=== PATIENT | male | born 1940 | race African-American/Black ===

== ENCOUNTER 2022-01-26 16:41 | Observation (INO) ==
[2022-01-26 21:56] LABS: Arterial Base Excess iSTAT -2 MMOL/L (-2.5-2.5); Arterial Bicarbonate iSTAT 22.8 MMOL/L (20-26); Arterial O2 Saturation iSTAT 97 % (95-100); Arterial PCO2 iSTAT 40 MM HG (35-48); Arterial PO2 iSTAT 93 MM HG (80-95); Arterial Total CO2 iSTAT 24 MMO/L (23-27); Arterial pH iSTAT 7.362 (7.35-7.45)
[2022-01-26 22:56] LABS: Basophils % 0.3 % (0.0-0.8); Eosinophils # 0.1 10*3/uL (0.0-0.87); Eosinophils % 3.1 % (0.00-10.9); Hematocrit 33.7 VOL% (42.0-52.0); Immature Granulocytes % 0.3 %; Immature Granulocytes Absolute 0.01 #; Lymphocytes # 1.7 10*3/uL (1.4-4.0); Lymphocytes % 44.9 % (21.2-54.2); Mean Corpuscular HGB Conc 32.6 GM/DL (32-36); Mean Corpuscular Volume 98.5 FL (87-102); Mean Platelet Volume 9.9 FL (9.6-12.0); Monocytes # 0.6 10*3/uL (0.11-0.8); Monocytes % 15.5 % (1.7-12.7); Neutrophils % 35.9 % (38.7-73.9); Platelet Count 181 T/CUMM (130-400); Red Blood Count 3.42 MC/CUMM (3.8-5.5); Red Cell Distribution Width 12.7 % (9.3-17.3); White Blood Count 3.8 T/CUMM (4-12)
[2022-01-26 23:12] LABS: Calcium 9.4 MG/DL (8.5-10.1); Osmolality,Calculated 280.5 MOS/KG (273-304)
[2022-01-26] MEDS ORDERED: ENOXAPARIN 100 MG/ML SYRINGE SUBCUT ONE (23:30)
[2022-01-26] MEDS ORDERED: AMIODARONE INJ 150 MG in DEXTROSE 5% 100 ML IV ONE (23:30)
[2022-01-26] MEDS ORDERED: AMIODARONE INJ 450 MG in DEXTROSE 5% 241 ML IV SCH (23:30)
[2022-01-26] MEDS: METOPROLOL TARTRATE 50 MG TABLET PO SCH (23:32)
[2022-01-26] MEDS ORDERED: ACETAMINOPHEN 325 MG TABLET PO PRN (23:56)
[2022-01-26] MEDS ORDERED: guaiFENesin/DM ER 600-30 MG TABLET PO PRN (23:56)
[2022-01-26] MEDS ORDERED: ONDANSETRON 4 MG/2 ML VIAL IV PRN (23:56)
[2022-01-26] MEDS ORDERED: hydrALAZINE 20 MG/1 ML VIAL IV PRN (23:56)
[2022-01-26] MEDS ORDERED: ALBUTEROL/IPRATROPIUM 3 ML NEB RESP TX PRN (23:56)
[2022-01-26] MEDS ORDERED: NICOTINE 21 MG/24 HR PATCH TRANSDERM PRN (23:56)
[2022-01-26] MEDS ORDERED: ZALEPLON 5 MG CAPSULE PO PRN (23:56)
[2022-01-27] MEDS ORDERED: FUROSEMIDE 40 MG/4 ML VIAL IV ONE (00:30)
[2022-01-27 06:06] LABS: Basophils % 0.5 % (0.0-0.8); Eosinophils # 0.1 10*3/uL (0.0-0.87); Eosinophils % 2.6 % (0.00-10.9); Hematocrit 34.1 VOL% (42.0-52.0); Hemoglobin 11.2 GM/DL (14.0-18.0); Immature Granulocytes % 0.5 %; Immature Granulocytes Absolute 0.02 #; Mean Corpuscular HGB Conc 32.8 GM/DL (32-36); Mean Corpuscular Volume 97.7 FL (87-102); Mean Platelet Volume 9.7 FL (9.6-12.0); Monocytes # 0.6 10*3/uL (0.11-0.8); Monocytes % 13.7 % (1.7-12.7); Neutrophils % 35.7 % (38.7-73.9); Platelet Count 188 T/CUMM (130-400); Red Blood Count 3.49 MC/CUMM (3.8-5.5); Red Cell Distribution Width 12.7 % (9.3-17.3); White Blood Count 4.2 T/CUMM (4-12)
[2022-01-27 06:31] LABS: Eosinophils 1 % (0-10); Lymphocytes 35 % (20-55); Platelet Estimate Adequate; Total Cells Counted 100
[2022-01-27 06:40] LABS: Calcium 9.9 MG/DL (8.5-10.1); Osmolality,Calculated 281.4 MOS/KG (273-304); Potassium 4.1 MMOL/L (3.5-5.1); Risk Ratio 2.86; Thyroid Stimulating Hormone 2.78 uIU/ml (0.358-3.74); VLDL Cholesterol 11.4 MG/DL
[2022-01-27] MEDS: FUROSEMIDE 40 MG/4 ML VIAL IV SCH ×2 (10:29→15:56)
[2022-01-27] MEDS: AMIODARONE INJ 450 MG in DEXTROSE 5% 241 ML IV SCH (10:31)
[2022-01-27] MEDS: METOPROLOL TARTRATE 50 MG TABLET PO SCH ×2 (10:31→21:25)
[2022-01-27] MEDS: PANTOPRAZOLE 40 MG TABLET PO SCH (10:32)
[2022-01-27] MEDS: OSELTAMIVIR 30 MG CAPSULE PO SCH ×2 (10:32→21:25)
[2022-01-27] MEDS: APIXABAN 5 MG TABLET PO SCH (21:25)
[2022-01-28] MEDS: AMIODARONE INJ 450 MG in DEXTROSE 5% 241 ML IV SCH ×2 (01:29→14:35)
[2022-01-28] MEDS ORDERED: SODIUM CHLORIDE 0.9% 1,000 ML IV SCH (08:30)
[2022-01-28 08:45] LABS: Basophils % 0.2 % (0.0-0.8); Eosinophils % 0.9 % (0.00-10.9); Hematocrit 34.1 VOL% (42.0-52.0); Hemoglobin 11.6 GM/DL (14.0-18.0); Immature Granulocytes % 0.2 %; Immature Granulocytes Absolute 0.01 #; Lymphocytes # 1.5 10*3/uL (1.4-4.0); Lymphocytes % 34.8 % (21.2-54.2); Mean Corpuscular Volume 95.3 FL (87-102); Mean Platelet Volume 9.6 FL (9.6-12.0); Monocytes # 0.5 10*3/uL (0.11-0.8); Monocytes % 11.5 % (1.7-12.7); Neutrophils % 52.4 % (38.7-73.9); Platelet Count 202 T/CUMM (130-400); Red Blood Count 3.58 MC/CUMM (3.8-5.5); Red Cell Distribution Width 12.5 % (9.3-17.3); White Blood Count 4.3 T/CUMM (4-12)
[2022-01-28 09:01] LABS: Calcium 9.9 MG/DL (8.5-10.1); Osmolality,Calculated 275.1 MOS/KG (273-304); Potassium 3.7 MMOL/L (3.5-5.1)
[2022-01-28] MEDS: METOPROLOL TARTRATE 50 MG TABLET PO SCH ×2 (09:30→21:34)
[2022-01-28] MEDS: FUROSEMIDE 40 MG/4 ML VIAL IV SCH (09:35)
[2022-01-28] MEDS: APIXABAN 5 MG TABLET PO SCH ×2 (09:38→21:34)
[2022-01-28] MEDS: PANTOPRAZOLE 40 MG TABLET PO SCH (09:38)
[2022-01-28] MEDS: ATORVASTATIN 40 MG TABLET PO SCH (09:38)
[2022-01-28] MEDS ORDERED: propofoL 200 MG/20 ML VIAL IV ONE (13:44)
[2022-01-28] MEDS ORDERED: LIDOCAINE 2% 5 ML VIAL ONE (13:44)
[2022-01-28] MEDS ORDERED: ETOMIDATE 20 MG/10 ML VIAL IV ONE ×2 (13:44→13:45)
[2022-01-28] MEDS: AMIODARONE 200 MG TABLET PO SCH (15:06)
[2022-01-28] MEDS: hydrALAZINE 25 MG TABLET PO SCH ×2 (15:07→21:34)
[2022-01-29 06:00] LABS: Basophils % 0.1 % (0.0-0.8); Eosinophils % 0.4 % (0.00-10.9); Hematocrit 31.1 VOL% (42.0-52.0); Hemoglobin 10.5 GM/DL (14.0-18.0); Immature Granulocytes % 0.4 %; Immature Granulocytes Absolute 0.03 #; Lymphocytes # 1.5 10*3/uL (1.4-4.0); Lymphocytes % 22.1 % (21.2-54.2); Mean Corpuscular HGB Conc 33.8 GM/DL (32-36); Mean Corpuscular Volume 95.7 FL (87-102); Mean Platelet Volume 10.2 FL (9.6-12.0); Monocytes # 0.8 10*3/uL (0.11-0.8); Monocytes % 12.2 % (1.7-12.7); Neutrophils % 64.8 % (38.7-73.9); Platelet Count 203 T/CUMM (130-400); Red Blood Count 3.25 MC/CUMM (3.8-5.5); Red Cell Distribution Width 12.7 % (9.3-17.3); White Blood Count 6.9 T/CUMM (4-12)
[2022-01-29 06:21] LABS: Calcium 9.5 MG/DL (8.5-10.1); Potassium 3.4 MMOL/L (3.5-5.1)
[2022-01-29] MEDS ORDERED: POTASSIUM CHLORIDE 20 MEQ TABLET PO ONE (08:00)
[2022-01-29] MEDS: ATORVASTATIN 40 MG TABLET PO SCH (08:32)
[2022-01-29] MEDS: PANTOPRAZOLE 40 MG TABLET PO SCH (08:32)
[2022-01-29] MEDS: METOPROLOL TARTRATE 50 MG TABLET PO SCH (08:32)
[2022-01-29] MEDS: APIXABAN 5 MG TABLET PO SCH (08:32)
[2022-01-29] MEDS: hydrALAZINE 25 MG TABLET PO SCH (08:32)
[2022-01-29] MEDS: AMIODARONE 200 MG TABLET PO SCH (08:32)
[2022-01-29] MEDS ORDERED: FUROSEMIDE 40 MG TABLET PO SCH (09:00)
[2022-01-29 12:09] VITALS: BP 142/80
== END 2022-01-29 12:50 | disposition home or self-care (01) ==
LOC: N.2W → SUATTDRO 21:30 → N.TELEN 22:05
PROVIDERS: ADMIT Internal Medicine; ATTEND Internal Medicine